=== PATIENT | female | born 1955 | race African-American/Black ===

== ENCOUNTER → 2018-04-09 | Outpatient (CLI) | payer OTHER | LOC: CFH 10:05 | PROVIDERS: ATTEND Nurse Practitioner Family | DX: Z12.31 Encounter for screening mammogram for malignant neoplasm of breast (principal) | CPT/HCPCS: 77063; 77067 ==

== ENCOUNTER → 2019-08-22 | Outpatient (CLI) | payer OTHER | END | disposition home or self-care (01) | LOC: CFH 15:04 | PROVIDERS: ATTEND Physician Assistant | DX: N60.02 Solitary cyst of left breast (principal); N60.01 Solitary cyst of right breast | CPT/HCPCS: 76641 ==

== ENCOUNTER → 2021-02-10 | Outpatient (CLI) | payer BC | END | disposition home or self-care (01) | LOC: RAD 12:45 | PROVIDERS: ATTEND Physician Assistant | DX: M11.261 Other chondrocalcinosis, right knee (principal); M25.761 Osteophyte, right knee ==

== ENCOUNTER 2021-06-23 14:32 | Outpatient (CLI) | payer BC | END 2021-06-23 23:59 | disposition home or self-care (01) | LOC: RAD 14:32 | PROVIDERS: ATTEND Orthopaedic Surgery | DX: S83.241A Other tear of medial meniscus, current injury, right knee, initial encounter (principal); M71.21 Synovial cyst of popliteal space [Baker], right knee; X58.XXXA Exposure to other specified factors, initial encounter; Y93.89 Activity, other specified; Y92.89 Other specified places as the place of occurrence of the external cause; Y99.8 Other external cause status ==